=== PATIENT | female | born 1975 | race Caucasian/White ===

== ENCOUNTER → 2016-04-18 | Outpatient (CLI) | payer MEDICAID ==
[~2016-04-18] MED LIST: ACETAMINOPHEN/T1 TA1 PO; ATIVAN GENERIC0.5 MG PO; BENTYL GENERIC10 MG PO; CYCLOBENZAPRINE10 M2 PO; HYDROCODONE-APA1 TA1 PO; HYOSCYAMINE0.125 M6 SL; IBU-8800 MG PO; LIDODERM 5% PA1 EACH TD; LISINOPRIL HCTZ1 TAB PO; LORTAB 5/500 501 TAB PO; MEDROL 4MG. DOSE4 MG PO; MOTRIN 600MG.600 MG PO; Mobic7.5 MG PO; NORCO 325 MG-101 TAB PO; OMEPRAZOLE20 MG PO; OMEPRAZOLE40 MG PO; OSCIMIN0.125 MG PO; PROMETHAZINE HC25 M1 PO; SERTRALINE 50MG50 MG PO; VENTOLIN H0.09 MG/Ac IH
[2016-04-18 15:47] LABS: LYMPH # 2.3 K/mm3 (0.7-4.5); LYMPH % 25.2 % (10-50.0)
[2016-04-18 15:59] LABS: HEMOGLOBIN 12.6 g/dL (12.2-16.2)
[2016-04-18 16:09] LABS: BUN 11 mg/dL (7-18); GFR (ESTIMATED) 69 ML/MIN (59-)
[2016-04-20 08:40] LABS: HBsAg Screen Negative (Negative); Hep A Ab, IgM Negative (Negative); Hep B Core Ab, IgM Negative (Negative); Hep C Virus Ab <0.1 (0.0-0.9); Vitamin B12 309 pg/mL (211-946)
[2016-04-23 03:36] LABS: Total 1,25-Dihydroxy,Vitamin D 54 pg/mL (.)
[2016-04-25 14:40] LABS: 1,25-Dihydroxy, Vitamin D-2 <10 pg/mL (.); 1,25-Dihydroxy, Vitamin D-3 51 pg/mL (.)
== END ==
LOC: LAB 15:25
PROVIDERS: Nurse Practitioner Family
DX: I10 Essential (primary) hypertension (principal); R53.1 Weakness; Z00.00 Encounter for general adult medical examination without abnormal findings